=== PATIENT | female | born 1970 | race Caucasian/White ===

== ENCOUNTER 2017-10-14 18:27 | Emergency (ER) | payer OTHER ==
[2017-10-14 18:29] VITALS: O2SAT 100
[2017-10-14] MEDS ORDERED: GENTAMICIN 80 MG PREMIX 100 ML ONE (18:36)
[2017-10-14] MEDS ORDERED: ceFAZolin 2 GM PREMIX 50 ML ONE (18:36)
[2017-10-14] MEDS ORDERED: DIPHTH/TETANUS/ACEL PERTUSSIS (BOOSTER) 0.5 ML VIAL/PFS IM ONE ×2 (18:36→19:13)
[2017-10-14 18:45] VITALS: BP 134/89; PULSE 51; RESP 23; O2SAT 98
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
[2017-10-14] MEDS ORDERED: LEVO75TA3 PO (18:56)
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
[2017-10-14] MEDS ORDERED: LIDOCAINE HCL 1% 50 ML VIAL INFIL ONE (19:00)
[2017-10-14 19:04] LABS: AUTOMATED NEUTROPHIL # 1.5 TH/MM3 (1.8-7.7); BASOPHIL % 1.3 % (0.0-2.0); EOSINOPHIL # 0.1 TH/MM3 (0-0.4); EOSINOPHIL % 4.8 % (0.0-4.0); HEMATOCRIT 35.7 % (35.0-46.0); HEMOGLOBIN 12.3 GM/DL (11.6-15.3); LYMPH % 29.7 % (9.0-44.0); LYMPHOCYTE # 0.8 TH/MM3 (1.0-4.8); MEAN CELL VOLUME 94.6 FL (80.0-100.0); MEAN CORPUSCULAR HEMOGLOBIN 32.6 PG (27.0-34.0); MEAN CORPUSCULAR HGB CONC 34.5 % (32.0-36.0); MEAN PLATELET VOLUME 8.2 FL (7.0-11.0); MONO % 8.8 % (0.0-8.0); MONOCYTE # 0.2 TH/MM3 (0-0.9); NEUT % 55.4 % (16.0-70.0); PLATELET COUNT 161 TH/MM3 (150-450); RED BLOOD COUNT 3.77 MIL/MM3 (4.00-5.30); RED CELL DISTRIBUTION WIDTH 12.8 % (11.6-17.2); WHITE BLOOD COUNT 2.7 TH/MM3 (4.0-11.0)
[2017-10-14] MEDS ORDERED: LIDOCAINE HCL 1% 20 ML VIAL ONE (19:10)
[2017-10-14] MEDS ORDERED: CEPH-460 PO (19:12)
[2017-10-14] MEDS ORDERED: NORC5TAB PO (19:12)
[2017-10-14] MEDS ORDERED: ceFAZolin 2 GM PREMIX 50 ML IV STA (19:13)
[2017-10-14 19:14] LABS: INTERNATIONAL NORMALIZED RATIO 1.2 RATIO
[2017-10-14] MEDS ORDERED: LIDOCAINE HCL 1% 30 ML VIAL INFIL ONE (19:15)
[2017-10-14] MEDS ORDERED: SODIUM CHLOR 0.9% 1000 ML INJ 1,000 ML IV ONE (19:15)
[2017-10-14] MEDS ORDERED: GENTAMICIN 80 MG PREMIX 100 ML IV ONE (19:15)
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
== END 2017-10-14 20:30 | disposition home or self-care (01) ==
LOC: NEPI 18:27 → EDBD 18:27 → NEPE 20:30
DX: S81.811A Laceration without foreign body, right lower leg, initial encounter (principal); E03.9 Hypothyroidism, unspecified; V13.4XXA Pedal cycle driver injured in collision with car, pick-up truck or van in traffic accident, initial encounter; Y93.55 Activity, bike riding
CPT/HCPCS: 12034; 71010; 72170; 73590; 82435; 82565; 82947; 84132; 84295; 84520; 85025; 85610; 85730; 86850; 86900; 86901; 90471; 90715; 96365; 96368; 99285; J0690; J1580; 12004; 96372; 96374; 96375